=== PATIENT | female | born 1980 | race African-American/Black ===

== ENCOUNTER → 2016-05-15 | Outpatient (CLI) | payer OTHER ==
[~2016-05-15] MED LIST: /AUGM875TA OR; /DULO30CA OR; BUSP30TA OR; DESYREL PO; LAMI25TA OR; LAMI25TA PO; LEXA1TAB2 PO; NO HOME MEDICATIONS; TRAZ150T OR; VIST50CA PO
== END ==
LOC: M OUTALCOH 09:49
PROVIDERS: ATTEND Psychiatry & Neurology Psychiatry
DX: Z13.9 Encounter for screening, unspecified (principal); F11.20 Opioid dependence, uncomplicated

== ENCOUNTER 2016-05-24 12:00 | Outpatient (RCR) | payer OTHER | END 2016-05-26 | LOC: M OUTALCOH 12:00 | PROVIDERS: ATTEND Psychiatry & Neurology Psychiatry | DX: Z13.9 Encounter for screening, unspecified (principal); F11.20 Opioid dependence, uncomplicated; F17.200 Nicotine dependence, unspecified, uncomplicated ==

== ENCOUNTER 2016-06-23 13:00 | Outpatient (RCR) | payer OTHER | END 2016-06-25 | LOC: M OUTALCOH 13:00 | PROVIDERS: ATTEND Psychiatry & Neurology Psychiatry | DX: Z13.9 Encounter for screening, unspecified (principal); F11.20 Opioid dependence, uncomplicated; F17.200 Nicotine dependence, unspecified, uncomplicated ==

== ENCOUNTER 2016-07-21 14:00 | Outpatient (RCR) | payer OTHER | END 2016-07-26 | LOC: M OUTALCOH 14:00 | PROVIDERS: ATTEND Psychiatry & Neurology Psychiatry | DX: Z13.9 Encounter for screening, unspecified (principal); F11.20 Opioid dependence, uncomplicated; F17.200 Nicotine dependence, unspecified, uncomplicated ==

== ENCOUNTER → 2019-09-25 | Emergency (ER) | payer OTHER, BC, MEDICAID ==
[~2019-09-25] MED LIST changes: -/DULO30CA OR; +CYMB1CAP5 OR; +CYMB60CA3 PO; +OMEP40CA97 PO; +ONDANSETRON 4 MG ORAL DISINTEGRATING TAB As Ordered ONE; +ONDANSETRON 4 MG ORAL DISINTEGRATING TAB ONE; +SUBO2MIS SL
[2019-11-02 14:19] LABS: BASO % 0.1 % (0.0-1.0); EOS # 0.2 10^3/uL (0.0-0.5); EOS % 1.3 % (0.0-3.0); HEMATOCRIT 39.4 % (36.0-47.0); HEMOGLOBIN 12.4 g/dl (12.0-15.5); LYMPH # 2.8 10^3/uL (1.5-5.0); LYMPH % 20.6 % (24.0-44.0); MEAN CORPUSCULAR HEMOGLOBIN 25.6 pg (27.0-33.0); MEAN CORPUSCULAR HGB CONC 31.5 g/dl (32.0-36.5); MEAN CORPUSCULAR VOLUME 81.4 fl (80.0-96.0); MONO # 0.7 10^3/uL (0.0-0.8); MONO % 5.3 % (0.0-5.0); NEUTROPHILS # 9.9 10^3/uL (1.5-8.5); NEUTROPHILS % 72.3 % (36.0-66.0); PLATELET COUNT, AUTOMATED 239 10^3/uL (150-450); RED BLOOD COUNT 4.84 10^6/uL (4.00-5.40); WHITE BLOOD COUNT 13.7 10^3/uL (4.0-10.0)
[2019-12-06 11:15] LABS: ALT/SGPT 22 U/L (12-78); BILIRUBIN,TOTAL 0.6 MG/DL (0.2-1.0); BLOOD UREA NITROGEN 11 MG/DL (7-18); CALCIUM LEVEL 9.1 MG/DL (8.5-10.1); CARBON DIOXIDE LEVEL 31 MEQ/L (21-32); CHLORIDE LEVEL 105 MEQ/L (98-107); GLOMERULAR FILTRATION RATE > 60.0 (>60); GLUCOSE, FASTING 81 MG/DL (70-100); LIPASE 58 U/L (73-393); POTASSIUM SERUM 3.8 MEQ/L (3.5-5.1); SODIUM LEVEL 140 MEQ/L (136-145); TOTAL PROTEIN 7.5 GM/DL (6.4-8.2)
== END | disposition home or self-care (01) ==
LOC: M ED 20:05
DX: Z76.0 Encounter for issue of repeat prescription (principal); R11.2 Nausea with vomiting, unspecified; F33.9 Major depressive disorder, recurrent, unspecified; F41.9 Anxiety disorder, unspecified; Z79.899 Other long term (current) drug therapy
CPT/HCPCS: 36415; 80053; 83690; 85025; 99283; Q0162; U0002

== ENCOUNTER 2019-11-14 02:32 | Emergency (ER) | payer BC, MEDICAID, OTHER ==
[~2019-11-14] VITALS: Ht 170.2 cm; Wt 149.6 kg
[~2019-11-14 02:32] MED LIST changes: -CYMB60CA3 PO; -OMEP40CA97 PO; -ONDANSETRON 4 MG ORAL DISINTEGRATING TAB As Ordered ONE; -ONDANSETRON 4 MG ORAL DISINTEGRATING TAB ONE; -SUBO2MIS SL
[2019-11-14 02:33] VITALS: BP 197/85
[2019-11-14] MEDS ORDERED: OMEP40CA97 PO (02:41)
[2019-11-14] MEDS ORDERED: CYMB60CA3 PO (02:41)
[2019-11-14] MEDS ORDERED: SUBO2MIS SL (02:41)
[2019-11-14] MEDS ORDERED: KETOROLAC 60MG 2ML VIAL IM ONE (03:45)
[2019-11-14] MEDS ORDERED: LIDOCAINE 5% (LIDODERM) PATCH TD ONE (04:15)
[2019-11-14] MEDS ORDERED: CYCLOBENZAPRINE 5MG TABLET PO ONE (04:15)
[2019-11-14] MEDS ORDERED: **NOTE PATIENT COMMENT** MISC XX ONE (17:00)
== END 2019-11-14 04:55 | disposition home or self-care (01) ==
LOC: M ED 02:32
DX: G89.29 Other chronic pain (principal); M54.5 Low back pain; E66.01 Morbid (severe) obesity due to excess calories; F32.9 Major depressive disorder, single episode, unspecified; F11.20 Opioid dependence, uncomplicated; Z79.899 Other long term (current) drug therapy
CPT/HCPCS: 96372; 99282; J1885

== ENCOUNTER 2020-10-22 02:28 | Emergency (ER) | payer OTHER ==
[~2020-10-22] VITALS: Ht 177.8 cm; Wt 120.2 kg
[~2020-10-22 02:28] MED LIST changes: +CYMB60CA3 PO; +OMEP40CA4 PO; +SUBO2MIS SL
[2020-10-22] MEDS ORDERED: NS 1,000 ML IV ONE ×2 (02:40→06:25)
[2020-10-22] MEDS ORDERED: NALOXONE 2MG/2ML SYRINGE (J2310 PER 1MG) As Ordered ONE (02:42)
[2020-10-22] MEDS ORDERED: ETOMIDATE INJ 20MG/10ML VIAL As Ordered ONE (02:42)
[2020-10-22] MEDS ORDERED: PROPOFOL 1,000 MG/100 ML VIAL As Ordered ONE ×2 (02:56→04:47)
[2020-10-22] MEDS ORDERED: SUCCINYLCHOLINE INJ 200 MG/10 ML VIAL (J0330) IV ONE (03:05)
[2020-10-22] MEDS ORDERED: ETOMIDATE INJ 20MG/10ML VIAL IV ONE (03:05)
[2020-10-22 03:33] LABS: HEMATOCRIT 39.2 % (36.0-47.0); HEMOGLOBIN 12.6 g/dl (12.0-15.5); MEAN CORPUSCULAR HEMOGLOBIN 26.6 pg (27.0-33.0); MEAN CORPUSCULAR HGB CONC 32.1 g/dl (32.0-36.5); MEAN CORPUSCULAR VOLUME 82.7 fl (80.0-96.0); PLATELET COUNT, AUTOMATED 240 10^3/uL (150-450); RED BLOOD COUNT 4.74 10^6/uL (4.00-5.40)
[2020-10-22 03:34] LABS: WHITE BLOOD COUNT 21.4 10^3/uL (4.0-10.0)
[2020-10-22 03:55] LABS: OSMOLALITY SERUM 312 MOSM/KG (275-295)
[2020-10-22 03:56] VITALS: O2SAT 100
--- NOTE | 2020-10-22 04:03 | REPVR ---
PROCEDURE INFORMATION: Exam: XR Chest Exam date and time: 10/22/2020 3:14 AM Age: 40 years old Clinical indication: Other: Altered mental status, intubated TECHNIQUE: Imaging protocol: XR of the chest. Views: 1 view. COMPARISON: CR Chest, 1 view 02/04/2015 7:54 PM FINDINGS: Limitations: The apices were not fully included. Tubes, catheters and devices: There is an endotracheal tube in appropriate position with the tip located approximately 6 cm above the hannah. Lungs: The lungs are clear. Pleural spaces: No pleural effusions or pneumothorax identified. Heart/Mediastinum: The heart is normal in size. Bones/joints: Unremarkable. IMPRESSION: Endotracheal tube in appropriate position. Electronically signed by: Amanda Shields On 10/22/2020 04:03:17 AM
[2020-10-22 04:05] LABS: EOSINOPHILS 1 % (0-3); HYPERSEGMENTED POLYS 2+; LYMPHOCYTES 29 % (16-44); METAMYELOCYTES 3 % (0-0); MONOCYTES 9 % (0-5); MYELOCYTES 1 % (0-0); NEUTROPHILS 57 % (28-66); PLATELET CLUMPS SMALL AMT; PLATELET ESTIMATE NORMAL (NORMAL); SMUDGE CELLS 1+
[2020-10-22 04:06] LABS: OVALOCYTES 1+
--- NOTE | 2020-10-22 04:12 | REPVR ---
PROCEDURE INFORMATION: Exam: CT Chest Without Contrast; Diagnostic Exam date and time: 10/22/2020 3:53 AM Age: 40 years old Clinical indication: Other: Unresponsive TECHNIQUE: Imaging protocol: Diagnostic computed tomography of the chest without contrast. Radiation optimization: All CT scans at this facility use at least one of these dose optimization techniques: automated exposure control; mA and/or kV adjustment per patient size (includes targeted exams where dose is matched to clinical indication); or iterative reconstruction. COMPARISON: CR PORTABLE CHEST X-RAY 10/22/2020 2:53 AM FINDINGS: Tubes, catheters and devices: There is an endotracheal tube in appropriate position. Lungs: There is a small amount of consolidation associated with volume loss in the left lower lobe, most typical of atelectasis. There are a few additional small, peripheral, somewhat rounded sites of consolidation in the left upper lobe and in the right lower lobe. There is a larger area of ground-glass opacity laterally in the right lower lobe. Pleural spaces: No pleural effusions or pneumothorax identified. Heart: The heart is normal in size. Aorta: No aortic aneurysm. Lymph nodes: No lymphadenopathy is seen. Bones/joints: No suspicious osseous lesions. No acute fractures. Mild degenerative endplate changes are noted in the visualized spine. Soft tissues: The soft tissues appear unremarkable. IMPRESSION: 1. Atelectasis in the left lower lobe. 2. Several additional small peripheral areas of consolidation which are somewhat rounded and are indeterminate, but raise the possibility of an infectious or inflammatory process including septic emboli and fungal infection. 3. The larger area of ground-glass opacity in the right lower lobe is also indeterminate and may be an infectious/inflammatory process, a pulmonary contusion, or aspiration. Electronically signed by: Amanda Shields On 10/22/2020 04:12:04 AM
[2020-10-22 04:14] LABS: ACETAMINOPHEN LEVEL < 2.0 UG/ML (10.0-30.0); ALBUMIN 3.9 GM/DL (3.2-5.2); ALT/SGPT 40 U/L (12-78); BILIRUBIN,DIRECT 0.5 MG/DL (0.0-0.2); BILIRUBIN,TOTAL 0.9 MG/DL (0.2-1.0); BLOOD UREA NITROGEN 26 MG/DL (7-18); CALCIUM LEVEL 8.7 MG/DL (8.5-10.1); CARBON DIOXIDE LEVEL 22 MEQ/L (21-32); CHLORIDE LEVEL 105 MEQ/L (98-107); CK-MB VALUE MASS 2.6 NG/ML (<3.6); CPK CREATINE PHOSPHOKINASE 293 U/L (26-192); CREATININE FOR GFR 2.51 MG/DL (0.55-1.30); ETHYL ALCOHOL (ETHANOL) < 0.003 % (0.000-0.010); GLOMERULAR FILTRATION RATE 27.7 (>60); GLUCOSE, FASTING 131 MG/DL (70-100); MB/CK RELATIVE INDEX 0.89 (< OR =4); POTASSIUM SERUM 3.5 MEQ/L (3.5-5.1); SALICYLATE LEVEL 1.7 MG/DL (5.0-30.0); SODIUM LEVEL 143 MEQ/L (136-145); TOTAL PROTEIN 7.8 GM/DL (6.4-8.2); TROPONIN I 3.68 NG/ML (< 0.10)
--- NOTE | 2020-10-22 04:17 | REPVR ---
PROCEDURE INFORMATION: Exam: CT Abdomen And Pelvis Without Contrast Exam date and time: 10/22/2020 3:53 AM Age: 40 years old Clinical indication: Other: Unresponsive TECHNIQUE: Imaging protocol: Computed tomography of the abdomen and pelvis without contrast. Radiation optimization: All CT scans at this facility use at least one of these dose optimization techniques: automated exposure control; mA and/or kV adjustment per patient size (includes targeted exams where dose is matched to clinical indication); or iterative reconstruction. COMPARISON: US PELVIC NON-OB COMPLETE 11/05/2013 5:15 PM FINDINGS: Limitations: There is artifact related to the positioning of the patients arms. There is motion artifact. Lungs: Nonspecific density is present in the lung bases. See the report for the CT scan of the chest. Liver: The unenhanced liver appears unremarkable. Gallbladder and bile ducts: No calcified stones. No ductal dilation. Pancreas: The pancreas appears unremarkable. No pancreatic ductal dilation identified. Spleen: The unenhanced spleen appears unremarkable. Adrenal glands: The adrenal glands are normal. Kidneys and ureters: The unenhanced kidneys appear unremarkable. There are no ureteral stones or hydronephrosis. Stomach and bowel: There is fluid within the small bowel without dilation or thickening. There is fluid throughout the colon with fluid levels as far distally as the rectum. No dilation or thickening of the colon is identified. Appendix: A normal appendix is identified. Intraperitoneal space: There is no evidence of free intraperitoneal or pelvic fluid. There is no free intraperitoneal air. Vasculature: No aortic aneurysm. Lymph nodes: There is no gross lymphadenopathy. Urinary bladder: The bladder is unremarkable. No stones identified. Reproductive: The uterus is unremarkable. Bones/joints: No suspicious osseous lesions. No acute fractures. Soft tissues: The soft tissues appear unremarkable. IMPRESSION: Fluid within the small bowel and fluid throughout the colon without dilation or thickening which is abnormal but nonspecific. Consider an enterocolitis. Electronically signed by: Amanda Shields On 10/22/2020 04:17:16 AM
--- NOTE | 2020-10-22 04:29 | REPVR ---
PROCEDURE INFORMATION: Exam: CT Head Without Contrast Exam date and time: 10/22/2020 3:53 AM Age: 40 years old Clinical indication: Altered mental status/memory loss TECHNIQUE: Imaging protocol: Computed tomography of the head without contrast. Radiation optimization: All CT scans at this facility use at least one of these dose optimization techniques: automated exposure control; mA and/or kV adjustment per patient size (includes targeted exams where dose is matched to clinical indication); or iterative reconstruction. COMPARISON: No relevant prior studies available. FINDINGS: Brain: There is bulky ossification of the anterior interhemispheric falx. There is mild patchy white matter hypoattenuation with no associated mass effect. There is increased attenuation in the right cerebellum best appreciated on the coronal views. Cerebral ventricles: No ventriculomegaly. Paranasal sinuses: Visualized sinuses are unremarkable. No fluid levels. Mastoid air cells: Visualized mastoid air cells are well aerated. Bones/joints: Unremarkable. No acute fracture. Soft tissues: Unremarkable. IMPRESSION: 1. Mild patchy white matter hypoattenuation is nonspecific and could represent areas of white matter demyelination or microangiopathic changes which is unusual in a patient of this stated age and are of indeterminate age. Correlation with MRI is suggested. 2. Area of increased attenuation in the right cerebellum best appreciated on the coronal views not as well delineated on the axial views. Subtle underlying bleed cannot be completely excluded. Short-term follow-up CT scan or MRI are suggested for better evaluation Electronically signed by: Will Haskins On 10/22/2020 04:28:10 AM
--- NOTE | 2020-10-22 04:32 | REPVR ---
PROCEDURE INFORMATION: Exam: CT Cervical Spine Without Contrast Exam date and time: 10/22/2020 3:53 AM Age: 40 years old Clinical indication: Other: AMS; Additional info: Altered mental status TECHNIQUE: Imaging protocol: Computed tomography images of the cervical spine without contrast. Radiation optimization: All CT scans at this facility use at least one of these dose optimization techniques: automated exposure control; mA and/or kV adjustment per patient size (includes targeted exams where dose is matched to clinical indication); or iterative reconstruction. COMPARISON: CR PORTABLE CHEST X-RAY 10/22/2020 2:53 AM FINDINGS: Tubes, catheters and devices: ET tube is seen. Bones/joints: No acute fracture. Normal alignment. Discs/Spinal canal/Neural foramina: There is mild atlanto dense degenerative productive changes. There is minimal posterior disc osteophyte complex formation at C4-C5, C5-C6 and C6-C7 . Sinuses: There is mild mucosal thickening in the left maxillary and right sphenoid sinus. Lungs: Lung apices are normal. Soft tissues: Unremarkable. IMPRESSION: 1. No CT evidence of acute traumatic cervical spine injury. 2. 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
[2020-10-22 04:38] LABS: RSV AMPLIFICATION NEGATIVE (NEGATIVE)
[2020-10-22 04:59] LABS: AMPHETAMINES LEVEL URINE POSITIVE (NEGATIVE); BARBITURATES URINE NEGATIVE (NEGATIVE); BENZODIAZEPINES URINE NEGATIVE (NEGATIVE); CANNABINOIDS URINE POSITIVE (NEGATIVE); COCAINE METABOLITE URINE NEGATIVE (NEGATIVE); METHADONE URINE NEGATIVE (NEGATIVE); OPIATES URINE POSITIVE (NEGATIVE); PHENCYCLIDINE URINE NEGATIVE (NEGATIVE)
[2020-10-22] MEDS ORDERED: cefTRIAXone SOD 2 GM in D5W MINI-BAG PLUS 50 ML IV ONE (05:00)
[2020-10-22 05:07] LABS: INR 1.21; PARTIAL THROMBOPLASTIN TIME 28.4 SECONDS (25.9-37.0); PROTHROMBIN TIME 15.7 SECONDS (12.7-14.5)
[2020-10-22] MEDS ORDERED: VANCOMYCIN HCL 1,000 MG, VIAL MATE ADAPTER 1 EACH in NS 250 ML IV ONE (06:05)
[2020-10-22] MEDS: propofoL 1,000 MG in IV 1 EA IV SCH ×2 (06:19→07:20)
[2020-10-22] MEDS ORDERED: HEPARIN DRIP 25,000 UNITS in IV 1 EA IV SCH ×2 (06:25→09:20)
[2020-10-22] MEDS ORDERED: HEPARIN SOD (PORCINE) 5000UNITS/ML 1ML VIAL/SYRINGE IV ONE (06:25)
[2020-10-22] MEDS ORDERED: ASPIRIN 300 MG SUPP PR ONE (06:25)
[2020-10-22] MEDS ORDERED: PROTAMINE SULF 50MG/5ML VIAL (J2720 PER 10MG) IV ONE (07:30)
--- NOTE | 2020-10-22 07:49 | REPVR ---
PROCEDURE INFORMATION: Exam: CT Head Without Contrast Exam date and time: 10/22/2020 7:16 AM Age: 40 years old Clinical indication: Other: Unresponsive; Additional info: Intractbale bleed TECHNIQUE: Imaging protocol: Computed tomography of the head without contrast. Radiation optimization: All CT scans at this facility use at least one of these dose optimization techniques: automated exposure control; mA and/or kV adjustment per patient size (includes targeted exams where dose is matched to clinical indication); or iterative reconstruction. Other technique: STROKE PROTOCOL was implemented. COMPARISON: CT Head without contrast 10/22/2020 3:06 AM FINDINGS: Brain: There is focal calcification of the anterior interhemispheric falx. There is subtle area of left frontal white matter hypoattenuation on axial images 12-14. Cerebral ventricles: No ventriculomegaly. Paranasal sinuses: Visualized sinuses are unremarkable. No fluid levels. Mastoid air cells: Visualized mastoid air cells are well aerated. Bones/joints: Unremarkable. No acute fracture. Soft tissues: Unremarkable. IMPRESSION: 1. No CT evidence of acute intracranial hemorrhage, mass effect or midline shift. The finding in the right cerebellum on the prior exam was artifactual. 2. Subtle area of left frontal white matter hypoattenuation is of unclear etiology in the differential include white matter edema and thing process or ischemia. Correlation with MRI with diffusion-weighted images is suggested. ASSESSMENT: ASPECTS ([place] Stroke Program Early CT Score) is 9-10??. Electronically signed by: Will Haskins On 10/22/2020 07:48:39 AM
[2020-10-22 08:47] LABS: INR 1.37; PROTHROMBIN TIME 17.3 SECONDS (12.7-14.5)
[2020-10-22 08:48] LABS: PARTIAL THROMBOPLASTIN TIME 33.6 SECONDS (25.9-37.0)
[2020-10-22 09:10] LABS: CK-MB VALUE MASS 12.5 NG/ML (<3.6); MB/CK RELATIVE INDEX 1.52 (< OR =4); TROPONIN I 15.7 NG/ML (< 0.10)
[2020-10-22 09:29] VITALS: BP 155/81
[2020-10-22 09:56] LABS: HEPATITIS B SURFACE ANTIGEN NEGATIVE (NEGATIVE)
[2020-10-22 09:57] LABS: HEPATITIS C VIRUS ABY INDEX > 11.0 INDEX (<0.8)
[2020-10-22 10:00] LABS: HIV SCREEN CENTAUR SOURCE NEGATIVE (NEGATIVE)
--- NOTE | 2020-10-22 21:21 | ECGEPIP ---
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
[2020-11-05] MEDS ORDERED: NALOXONE 2MG/2ML SYRINGE (J2310 PER 1MG) IV STA (07:00)
== END 2020-10-22 09:31 | disposition short-term general hospital (02) ==
LOC: M ED 02:28
DX: I21.4 Non-ST elevation (NSTEMI) myocardial infarction (principal); N17.9 Acute kidney failure, unspecified; A41.9 Sepsis, unspecified organism; E66.01 Morbid (severe) obesity due to excess calories; I44.7 Left bundle-branch block, unspecified; R94.31 Abnormal electrocardiogram [ECG] [EKG]; F33.9 Major depressive disorder, recurrent, unspecified; M54.9 Dorsalgia, unspecified; G89.29 Other chronic pain; Z79.899 Other long term (current) drug therapy
CPT/HCPCS: 36600; 51702; 70450; 71045; 71250; 72125; 74176; 80047; 80048; 80076; 80143; 80307; 81001; 82077; 82140; 82550; 82553; 82803; 83605; 83930; 84443; 84484; 85025; 85610; 85730; 86803; 87040; 87088; 87340; 87389; 87505; 87521; 87631; 93005; 93041; 94760; 96365; 96367; 96368; 96375; 96376; 99285; J0330; J0696; J1644; J2310; J2720; J3370

== ENCOUNTER 2022-02-14 07:36 | Emergency (ER) | payer OTHER ==
[~2022-02-14 07:36] MED LIST changes: -CYMB60CA3 PO; +CYMB60CA4 PO
[2022-02-14 07:55] VITALS: BP 149/86
== END 2022-02-14 08:24 | disposition home or self-care (01) ==
LOC: EDBD 07:36 → M ED 07:36
DX: T40.1X1A Poisoning by heroin, accidental (unintentional), initial encounter (principal); I10 Essential (primary) hypertension; E66.01 Morbid (severe) obesity due to excess calories; F19.90 Other psychoactive substance use, unspecified, uncomplicated; Z79.899 Other long term (current) drug therapy